=== PATIENT | female | born 1985 | race Caucasian/White ===

== ENCOUNTER 2018-10-21 11:16 | Inpatient (IN) | payer OTHER ==
[2018-10-21] MEDS: ACETAMINOPHEN 500 MG TAB PO (13:33)
[2018-10-21 13:37] LABS: ADD MAN DIFF? NO
[2018-10-21 13:41] LABS: WHITE BLOOD COUNT 13.3 10^3/ul (4.8-10.8)
[2018-10-21 13:41] LABS: BASOPHILS % 0.1 % (0.0-2.0); EOSINOPHILS % 0.1 % (0.0-7.0); HEMATOCRIT 38.7 % (37.0-47.0); HEMOGLOBIN 13.5 g/dl (12.0-16.0); LYMPHOCYTES # 1.1 10^3/ul (0.8-2.9); LYMPHOCYTES % 7.9 % (15.0-51.0); MEAN CORPUSCULAR HEMOGLOBIN 30.1 pg (29.0-33.0); MEAN CORPUSCULAR HGB CONC 34.9 g/dl (32.0-37.0); MEAN CORPUSCULAR VOLUME 86.2 fl (82.0-101.0); MEAN PLATELET VOLUME 11.5 fl (7.4-10.4); MONOCYTE # 0.7 10^3/ul (0.3-0.9); MONOCYTES % 4.9 % (0.0-11.0); NEUTROPHIL # 11.5 10^3/ul (1.6-7.5); NEUTROPHILS % 86.6 % (39.0-77.0); PLATELET COUNT 194 10^3/UL (140-415); RED BLOOD COUNT 4.49 10^6/ul (4.20-5.40); RED CELL DISTRIBUTION WIDTH 11.9 % (11.5-14.5)
[2018-10-21 13:51] LABS: ADD UMIC YES; UR ASCORBIC ACID NEGATIVE (NEGATIVE); UR BACTERIA FEW /HPF (NONE SEEN); UR BILIRUBIN (Dip) NEGATIVE (NEGATIVE); UR BLOOD (Dip) 2+ mg/dL (NEGATIVE); UR CLARITY CLOUDY (CLEAR); UR COLOR YELLOW (YELLOW); UR GLUCOSE (Dip) NEGATIVE (NEGATIVE); UR KETONES (Dip) 2+ mg/dL (NEGATIVE); UR LEUKOCYTE ESTERASE (Dip) 3+ Leu/ul (NEGATIVE); UR MUCUS FEW /HPF (NONE SEEN); UR NITRITE (Dip) POSITIVE (NEGATIVE); UR RBC 14 /HPF (0-5); UR SPECIFIC GRAVITY (Dip) 1.015 (1.003-1.030); UR TOTAL PROTEIN (Dip) 1+ mg/dl (NEGATIVE); UR UROBILINOGEN (Dip) NEGATIVE (NEGATIVE); UR WBC > 182 /HPF (0-5)
[2018-10-21] MEDS: SOD CHLORIDE 0.9% 1,000 ML IV ×2 (14:32→17:58)
[2018-10-21] MEDS: CEFTRIAXONE 1 GM/50 ML (PMX) 50 ML IVPB ×2 (14:33→17:58)
[2018-10-21 15:25] LABS: ANION GAP 10 (5-13); BLOOD UREA NITROGEN 8 mg/dl (7-20); CALCIUM 9.9 mg/dl (8.4-10.2); CARBON DIOXIDE 24 mmol/L (21-31); CHLORIDE 103 mmol/L (97-110); CREATININE 0.39 mg/dl (0.44-1.00); Estimated GFR > 60 mL/min (>60); GLUCOSE 122 mg/dl (70-220); SODIUM 137 mmol/L (135-144)
[2018-10-21] MEDS ORDERED: ACETAMINOPHEN 325 MG TAB PO (16:00)
[2018-10-21] MEDS ORDERED: NACL 0.9% 3 ML SYG IV (16:00)
[2018-10-21] MEDS ORDERED: ONDANSETRON 4 MG INJ IV ×2 (16:00)
[2018-10-21] MEDS ORDERED: METOCLOPRAMIDE 10 MG INJ IM (16:30)
[2018-10-21] MEDS: morphine 4 MG/ML VIAL IV (17:06)
[2018-10-21] MEDS: METOCLOPRAMIDE 10 MG INJ IV (20:10)
[2018-10-22 05:58] LABS: ADD MAN DIFF? NO
[2018-10-22 06:01] LABS: BASOPHILS % 0.1 % (0.0-2.0); EOSINOPHILS # 0.1 10^3/ul (0.0-0.5); HEMATOCRIT 31.9 % (37.0-47.0); LYMPHOCYTES # 1.1 10^3/ul (0.8-2.9); LYMPHOCYTES % 14.7 % (15.0-51.0); MEAN CORPUSCULAR HEMOGLOBIN 30.3 pg (29.0-33.0); MEAN CORPUSCULAR HGB CONC 34.5 g/dl (32.0-37.0); MEAN CORPUSCULAR VOLUME 87.9 fl (82.0-101.0); MEAN PLATELET VOLUME 11.3 fl (7.4-10.4); MONOCYTE # 0.8 10^3/ul (0.3-0.9); MONOCYTES % 9.8 % (0.0-11.0); NEUTROPHIL # 5.7 10^3/ul (1.6-7.5); NEUTROPHILS % 74.1 % (39.0-77.0); PLATELET COUNT 158 10^3/UL (140-415); RED BLOOD COUNT 3.63 10^6/ul (4.20-5.40)
[2018-10-22 06:01] LABS: WHITE BLOOD COUNT 7.7 10^3/ul (4.8-10.8)
[2018-10-22 06:31] LABS: ALANINE AMINOTRANSFERASE 18 IU/L (13-69); ALBUMIN 3.1 g/dl (3.3-4.9); ALBUMIN/GLOBULIN RATIO 1.19; ALKALINE PHOSPHATASE 40 IU/L (42-121); ANION GAP 6 (5-13); ASPARTATE AMINO TRANSFERASE 15 IU/L (15-46); BILIRUBIN,INDIRECT 0.5 mg/dl (0-1.1); BILIRUBIN,TOTAL 0.5 mg/dl (0.2-1.3); BLOOD UREA NITROGEN 5 mg/dl (7-20); CALCIUM 8.7 mg/dl (8.4-10.2); CARBON DIOXIDE 26 mmol/L (21-31); CHLORIDE 105 mmol/L (97-110); CREATININE 0.44 mg/dl (0.44-1.00); Estimated GFR > 60 mL/min (>60); GLUCOSE 89 mg/dl (70-220); MAGNESIUM 1.9 mg/dl (1.7-2.5); SODIUM 137 mmol/L (135-144); TOTAL PROTEIN 5.7 g/dl (6.1-8.1)
[2018-10-22] MEDS: CEFTRIAXONE 1 GM/50 ML (PMX) 50 ML IVPB (15:48)
[2018-10-22] MEDS: SOD CHLORIDE 0.9% 1,000 ML IV (15:49)
[2018-10-23 06:25] LABS: ADD MAN DIFF? NO
[2018-10-23 06:28] LABS: WHITE BLOOD COUNT 6.2 10^3/ul (4.8-10.8)
[2018-10-23 06:28] LABS: BASOPHILS % 0.3 % (0.0-2.0); EOSINOPHILS # 0.2 10^3/ul (0.0-0.5); EOSINOPHILS % 2.7 % (0.0-7.0); HEMATOCRIT 32.1 % (37.0-47.0); HEMOGLOBIN 11.3 g/dl (12.0-16.0); LYMPHOCYTES # 1.3 10^3/ul (0.8-2.9); LYMPHOCYTES % 21.6 % (15.0-51.0); MEAN CORPUSCULAR HEMOGLOBIN 30.5 pg (29.0-33.0); MEAN CORPUSCULAR HGB CONC 35.2 g/dl (32.0-37.0); MEAN CORPUSCULAR VOLUME 86.8 fl (82.0-101.0); MEAN PLATELET VOLUME 11.6 fl (7.4-10.4); MONOCYTE # 0.6 10^3/ul (0.3-0.9); MONOCYTES % 9.9 % (0.0-11.0); NEUTROPHILS % 65.2 % (39.0-77.0); PLATELET COUNT 168 10^3/UL (140-415); RED CELL DISTRIBUTION WIDTH 11.9 % (11.5-14.5)
[2018-10-23 07:02] LABS: ANION GAP 7 (5-13); BLOOD UREA NITROGEN 5 mg/dl (7-20); CALCIUM 8.7 mg/dl (8.4-10.2); CARBON DIOXIDE 24 mmol/L (21-31); CHLORIDE 106 mmol/L (97-110); Estimated GFR > 60 mL/min (>60); GLUCOSE 91 mg/dl (70-220); MAGNESIUM 1.9 mg/dl (1.7-2.5); PHOSPHORUS 3.6 mg/dl (2.5-4.9); POTASSIUM 3.9 mmol/L (3.5-5.1); SODIUM 137 mmol/L (135-144)
[2018-10-23] MEDS: VANCOMYCIN 1 GM (PMX) 250 ML IVPB (10:50)
[2018-10-23] MEDS: CEFTRIAXONE 1 GM/50 ML (PMX) 50 ML IVPB (14:47)
[2018-10-23] MEDS: SOD CHLORIDE 0.9% 1,000 ML IV ×2 (15:56→22:31)
[2018-10-24 06:07] LABS: ADD MAN DIFF? NO
[2018-10-24 06:11] LABS: BASOPHILS % 0.3 % (0.0-2.0); EOSINOPHILS # 0.2 10^3/ul (0.0-0.5); EOSINOPHILS % 2.8 % (0.0-7.0); HEMATOCRIT 32.8 % (37.0-47.0); HEMOGLOBIN 11.6 g/dl (12.0-16.0); LYMPHOCYTES # 1.4 10^3/ul (0.8-2.9); LYMPHOCYTES % 20.6 % (15.0-51.0); MEAN CORPUSCULAR HEMOGLOBIN 30.5 pg (29.0-33.0); MEAN CORPUSCULAR HGB CONC 35.4 g/dl (32.0-37.0); MEAN CORPUSCULAR VOLUME 86.3 fl (82.0-101.0); MEAN PLATELET VOLUME 11.8 fl (7.4-10.4); MONOCYTE # 0.7 10^3/ul (0.3-0.9); NEUTROPHIL # 4.4 10^3/ul (1.6-7.5); NEUTROPHILS % 65.9 % (39.0-77.0); PLATELET COUNT 179 10^3/UL (140-415); RED CELL DISTRIBUTION WIDTH 11.9 % (11.5-14.5)
[2018-10-24 06:11] LABS: WHITE BLOOD COUNT 6.7 10^3/ul (4.8-10.8)
[2018-10-24 06:58] LABS: ANION GAP 9 (5-13); BLOOD UREA NITROGEN 5 mg/dl (7-20); CALCIUM 8.7 mg/dl (8.4-10.2); CARBON DIOXIDE 22 mmol/L (21-31); CHLORIDE 107 mmol/L (97-110); CREATININE 0.39 mg/dl (0.44-1.00); Estimated GFR > 60 mL/min (>60); GLUCOSE 85 mg/dl (70-220); MAGNESIUM 1.9 mg/dl (1.7-2.5); PHOSPHORUS 4.3 mg/dl (2.5-4.9); POTASSIUM 3.9 mmol/L (3.5-5.1); SODIUM 138 mmol/L (135-144)
[2018-10-24] MEDS: CEFTRIAXONE 1 GM/50 ML (PMX) 50 ML IVPB (13:31)
[2018-10-24] MEDS: SOD CHLORIDE 0.9% 1,000 ML IV ×2 (15:56→22:56)
[2018-10-24] MEDS: ACETAMINOPHEN 325 MG TAB PO (22:50)
[2018-10-25 05:23] LABS: ADD MAN DIFF? NO
[2018-10-25 05:40] LABS: BASOPHILS % 0.2 % (0.0-2.0); EOSINOPHILS # 0.2 10^3/ul (0.0-0.5); EOSINOPHILS % 2.7 % (0.0-7.0); HEMATOCRIT 32.7 % (37.0-47.0); HEMOGLOBIN 11.6 g/dl (12.0-16.0); LYMPHOCYTES # 1.4 10^3/ul (0.8-2.9); LYMPHOCYTES % 17.1 % (15.0-51.0); MEAN CORPUSCULAR HEMOGLOBIN 30.4 pg (29.0-33.0); MEAN CORPUSCULAR HGB CONC 35.5 g/dl (32.0-37.0); MEAN CORPUSCULAR VOLUME 85.8 fl (82.0-101.0); MEAN PLATELET VOLUME 11.5 fl (7.4-10.4); MONOCYTE # 0.8 10^3/ul (0.3-0.9); MONOCYTES % 9.3 % (0.0-11.0); NEUTROPHIL # 5.8 10^3/ul (1.6-7.5); NEUTROPHILS % 70.5 % (39.0-77.0); PLATELET COUNT 183 10^3/UL (140-415); RED BLOOD COUNT 3.81 10^6/ul (4.20-5.40); RED CELL DISTRIBUTION WIDTH 11.9 % (11.5-14.5)
[2018-10-25 05:40] LABS: WHITE BLOOD COUNT 8.2 10^3/ul (4.8-10.8)
[2018-10-25 06:09] LABS: ANION GAP 8 (5-13); BLOOD UREA NITROGEN 7 mg/dl (7-20); CARBON DIOXIDE 22 mmol/L (21-31); CHLORIDE 107 mmol/L (97-110); CREATININE 0.36 mg/dl (0.44-1.00); Estimated GFR > 60 mL/min (>60); GLUCOSE 86 mg/dl (70-220); MAGNESIUM 1.7 mg/dl (1.7-2.5); PHOSPHORUS 4.8 mg/dl (2.5-4.9); SODIUM 137 mmol/L (135-144)
[2018-10-25] MEDS: CEPHALEXIN 500 MG CAP PO (10:31)
== END 2018-10-25 15:37 | disposition home or self-care (01) | DRG 833 ==
LOC: PP2 17:46 → FTE 11:16 → PP2 15:58
PROVIDERS: Internal Medicine
DX: O23.02 Infections of kidney in pregnancy, second trimester (principal); Z3A.11 11 weeks gestation of pregnancy; B96.20 Unspecified Escherichia coli [E. coli] as the cause of diseases classified elsewhere
CPT/HCPCS: 36415; 76775; 76801; 80048; 80053; 81001; 83735; 84100; 84702; 85025; 86900; 86901; 87040; 87086; 96374; 99285-25; G0378